=== PATIENT | female | born 1930 | race Caucasian/White ===

== ENCOUNTER 2018-03-02 13:24 | Outpatient (CLI) | payer MEDICARE, OTHER ==
--- NOTE | 2018-03-02 16:04 | RAD ---
THORACIC SPINE RADIOGRAPHS THREE VIEWS: Date: 03-02-18 Provided Clinical History: FINDINGS: There is left convexity scoliosis of the lower thoracic and upper lumbar spine. Sagittal thoracic ali gnment appears normal. Age indeterminate superior endplate compress deformity of T6. Vascular calcifi cation involves the aortic arch. Vascular stent material over the medial left upper quadrant. Cholecy stectomy clips overlie the right upper quadrant. IMPRESSION: 1. Age indeterminate superior endplate compression fracture of T6. 2. Thoracolumbar scoliosis as above. POS: [facility]
== END 2018-03-02 13:25 | disposition home or self-care (01) ==
LOC: TBSIIMAG 13:24
PROVIDERS: ATTEND Neurological Surgery
DX: M48.56XA Collapsed vertebra, not elsewhere classified, lumbar region, initial encounter for fracture (principal); M41.9 Scoliosis, unspecified
CPT/HCPCS: 72072

== ENCOUNTER 2018-04-21 09:41 | Outpatient (CLI) | payer MEDICARE, OTHER ==
--- NOTE | 2018-04-21 10:05 | RAD ---
THREE VIEWS THORACIC SPINE: Date: 04-21-18 History: Fracture of unspecific thoracic vertebral body. Patient having upper back pain. Comparison: 03-12-18 FINDINGS: There are compression fractures involving the T6 and T7 vertebral bodies with what appears to be at l east 50% loss of height anteriorly involving these vertebral bodies. The fracture of the T6 vertebral body was seen on the prior study. Fracture of the T7 vertebral body was not seen on the prior exam. There is left convex scoliosis of the thoracolumbar spine, also noted on the prior exam. Scattered os teophytes are seen within the thoracic spine. Vascular stent again overlies the left upper quadrant l ikely related to a renal artery stent. Surgical clips overlie the right upper quadrant. Vascular calc ifications are seen in the thoracic and abdominal aorta. IMPRESSION: 1. Stable compression fracture of the T6 vertebral body with interval development of a wedge shaped c ompression fracture of the T7 vertebral body. 2. Thoracolumbar scoliosis with degenerative changes scattered within the thoracic as well as visuali zed lumbar spine. POS: [facility]
== END 2018-04-21 09:42 | disposition home or self-care (01) ==
LOC: TBSIIMAG 09:41
PROVIDERS: ATTEND Neurological Surgery
DX: S22.008A Other fracture of unspecified thoracic vertebra, initial encounter for closed fracture (principal); S22.060A Wedge compression fracture of T7-T8 vertebra, initial encounter for closed fracture; S22.059A Unspecified fracture of T5-T6 vertebra, initial encounter for closed fracture
CPT/HCPCS: 72072

== ENCOUNTER 2018-05-24 11:16 | Outpatient (CLI) | payer MEDICARE, OTHER ==
--- NOTE | 2018-05-24 13:46 | RAD ---
THORACIC SPINE 3 VIEWS: Date: 05/24/18 HISTORY: 87-year-old female with history of unspecified thoracic vertebra. Patient was bending over and heard a pop> History of demineralization. COMPARISON: 04/21/18. FINDINGS: Again noted are compressive changes of what appear to be T6 and T7 vertebral bodies with little parsad e from the prior study. Bony demineralization. Generalized degenerative changes. There is noted to be some anterolisthesis of C3 on C4 and retrolisthesis of C4 on C5 partially visualized. IMPRESSION: Thoracic spondylosis. Vertebral body collapse involving what appear to be T6 and T7 vertebral bodies with little change from prior study. If the patient has significant acute symptoms, consider follow-u p MRI study. POS: [facility]
== END 2018-05-24 11:17 | disposition home or self-care (01) ==
LOC: TBSIIMAG 11:16
PROVIDERS: ATTEND Neurological Surgery
DX: S22.008A Other fracture of unspecified thoracic vertebra, initial encounter for closed fracture (principal); M47.894 Other spondylosis, thoracic region
CPT/HCPCS: 72072

== ENCOUNTER 2020-05-14 13:48 | Inpatient (IN) | payer MEDICARE, OTHER ==
[~2020-05-14 13:48] MED LIST: Iopamidol-370 76% 500 ML 1 ML ONE
[2020-05-14 15:05] LABS: #Lymphocytes 0.7 thou/uL (1.20-3.40); #Monocytes 0.3 thou/uL (0.11-0.59); #Neutrophils 9.4 thou/uL (1.40-6.50); %Eosinophils 0.4 % (0.0-10.0); %Lymphocytes 6.4 % (21.0-51.0); %Monocytes 3.2 % (0.0-10.0); Hemoglobin 15.1 g/dL (12.0-16.0); Mean Corpuscular HGB CONC 33.5 g/dL (32.0-36.0); Mean Corpuscular Hemoglobin 30.1 pg (27.0-31.0); Mean Corpuscular Volume 89.8 fL (78.0-98.0); Mean Platelet Volume 6.1 fL (7.4-10.4); Platelet Count 325 thou/uL (130-400); RBC Distribution Width 13.3 % (11.5-14.5); Red Blood Cell (RBC) Count 5.03 mill/uL (4.20-5.40); White Blood Cell (WBC) Count 10.4 thou/uL (4.8-10.8)
--- NOTE | 2020-05-14 15:05 | RAD ---
XR Chest 1 View Portable HISTORY: Chest pain COMPARISON: None FINDINGS: The heart size is borderline. The aorta is tortuous. The lungs are without focal areas of c onsolidation, pneumothorax or large pleural effusions. IMPRESSION: No radiographic evidence of acute cardiopulmonary process.
[2020-05-14 15:29] LABS: ALT (SGPT) 33 U/L (8-55); AST (SGOT) 16 U/L (5-34); Albumin 4.1 g/dL (3.4-4.8); Alkaline Phosphatase 57 U/L (40-110); Anion Gap 15 mmol/L (10-20); BUN (Urea Nitrogen) 29 mg/dL (9.8-20.1); Bilirubin, Total 0.2 mg/dL (0.2-1.2); CK (CPK) 17 U/L (29-168); Calc. Creatinine Clearance 0 mL/min (70-130); Calcium 9.4 mg/dL (7.8-10.44); Carbon Dioxide 23 mmol/L (23-31); Chloride 98 mmol/L (98-107); Estimated GFR-MDRD 44; Globulin 2.4 g/dL (2.4-3.5); Glucose 163 mg/dL (83-110); Lipase 54 U/L (8-78); Potassium 4.6 mmol/L (3.5-5.1); Protein, Total 6.5 g/dL (6.0-8.3); Sodium 131 mmol/L (136-145)
--- NOTE | 2020-05-14 16:01 | CT ---
CTA CHEST WITH CONTRAST: 05/14/20 Axial tomograms obtained following pulmonary angio protocol with multiplanar reconstruction and 3D po stprocessing. INDICATION: Shortness of breath. Assess for pulmonary embolus. FINDINGS: Pulmonary arteries are well opacified. No evidence of pulmonary embolus identified. The lung holder are well aerated. There is hazy atelectasis and infiltrate in the posterior right low er lobe. Streaky infiltrate cannot be excluded. Mild stranding in the left lung base. Lung holder otherwise appear clear. Mediastinum is otherwise unremarkable. Atherosclerotic changes are seen involving the thoracic aorta. No evidence of dissection or aneurysm. Images through upper abdomen unremarkable. Review of osseous structures shows wedge compression defor mities involving two mid thoracic vertebrae. These appear to represent T6 and T7 with prominent anter ior wedging of both these vertebra resulting in greater than 50% loss of anterior height. There is al so mild compression of the T12 vertebra. IMPRESSION: 1. No evidence of pulmonary embolus. 2. Hazy and streaky infiltrate and/or atelectasis in the right lung base. 3. Vertebral compression deformities as described. POS: [facility]
[2020-05-14] MEDS ORDERED: hydrALAZINE 20 MG/ML VIAL ONE (16:33)
[2020-05-14 17:04] LABS: Bacteria/HPF None Seen HPF (None Seen); Bilirubin Negative (Negative); Blood, Urine 1+ (Negative); Clarity Clear (Clear); Glucose, Urine (Dipstick) Normal (Negative); Leukocyte Negative Leu/uL (Negative); Nitrite Negative (Negative); Protein, Urine (Dipstick) Negative (Neg-Trace); Squamous Epithelial 0-3 HPF (0-3); Urobilinogen Normal mg/dL (Less than 2); WBC/HPF 0-3 HPF (0-3)
[2020-05-14 19:57] LABS: Lactic Acid 1.3 mmol/L (0.5-2.2)
[2020-05-14] MEDS ORDERED: Nitroglycerin 0.4 MG TAB (25 Tab Bottle) PO PRN (21:29)
[2020-05-14] MEDS ORDERED: Ondansetron ODT 4 MG TAB PO PRN (21:35)
[2020-05-14] MEDS ORDERED: Ondansetron PF 4 MG/2 ML Vial IVP PRN (21:35)
[2020-05-14] MEDS ORDERED: Senokot S 8.6-50 MG TAB PO PRN (21:35)
[2020-05-14] MEDS ORDERED: Carvedilol 6.25 MG TAB PO SCH (22:00)
[2020-05-14] MEDS ORDERED: Spironolactone 25 MG TAB PO SCH (22:00)
--- NOTE | 2020-05-14 22:07 | HP ---
PRIMARY CARE PHYSICIAN: Jorge Valencia MD. PRIMARY DB2 DBA: Sarita Underwood DO. CHIEF COMPLAINT: The patient was referred to the emergency room from Dr. Underwood' s office due to abnormal labs. HISTORY OF PRESENT ILLNESS: The patient is an 89-year-old female with giant cell arteritis with polymyalgia rheumatica on chronic steroids, presented to the emergency room with above complaints. Approximately 8 weeks ago, the patient was scratched by her dog on the left leg. She had approximately 2-inch long and 1-inch wide wound that has persistently remained open. She denies significant drainage. She had mild redness around the wound. Last week, she was started on Augmentin by Dr. Underwood. She was evaluated last week by Dr. Underwood and underwent a blood work including blood cultures. Over the last 3 days, the patient has not been feeling well. She feels generally weak and fatigued. She denies any fevers, chills, or sick contacts. No nausea, vomiting, night sweats, or GI symptoms reported. For this reason, she had a tele visit with Dr. Underwood. She was advised to come to the emergency room since her blood cultures were positive for Clostridium perfringens. Her blood cultures were drawn on May 07, 2020. Her WBC count on May 07, 2020 was 12.3 with 90.5% neutrophils. Her ESR at that time was 5 with a CRP of 1.6. No chest pain, shortness of breath, or palpitations reported. PAST MEDICAL HISTORY: 1. Chronic low back pain. 2. Giant cell arteritis with polymyalgia rheumatica, on prednisone 8 mg daily. 3. Coronary artery disease, status post stent placement, followed by Dr. Bethea. 4. Renal artery stenosis, status post stent placement. 5. Hypertension. 6. Gastroesophageal reflux disease. 7. Hyperlipidemia. 8. Hypothyroidism. 9. Osteoporosis. PAST SURGICAL HISTORY: 1. Cardiac stent placement. 2. Stent placement in the kidneys. 3. Biopsy for giant cell arteritis. 4. Colon resection ALLERGIES: THE PATIENT IS ALLERGIC TO SULFA. CURRENT HOME MEDICATIONS: The patient is able to name some of the medication that includes; 1. Spironolactone. 2. Prednisone 8 mg daily. 3. Carvedilol 25 mg b.i.d., which was recently increased by Dr. Bethea. She was on 12.5 mg b.i.d. 4. She is also on Augmentin. 5. Aspirin. 6. Zetia. Augmentin was started last week. SOCIAL HISTORY: The patient is retired, . Does not smoke. She makes her own decision with the help of her daughter. She is full code. FAMILY HISTORY: Positive for hypertension and heart disease. REVIEW OF SYSTEMS: All other review of systems were reviewed and were found negative. PHYSICAL EXAMINATION: VITAL SIGNS: Temperature 98.5 respirations of 20, pulse rate of 85 with a blood pressure of 161/77, and O2 saturation of 95% on room air. GENERAL: An 89-year-old female, in no apparent distress. HEENT: Head, atraumatic and normocephalic. Sclerae anicteric. Moist mucous membranes. No oral lesion. NECK: Supple. No JVD appreciated. No carotid bruit. LUNGS: Clear to auscultation bilaterally. There was scattered rhonchi at bases. No rales or wheezing. HEART: S1 and S2 present. A 3/6 systolic murmur over the mitral and aortic area. No heaves or pulsation. ABDOMEN: Soft. Bowel sounds present. No rebound or guarding. No costovertebral angle tenderness. EXTREMITIES: No edema or calf tenderness. There is a left leg wound approximately 2-inch long and 1-inch wide with granulation tissue. There was no drainage. There is mild erythema around the wound. Edges were clean. NEUROLOGIC: Grossly nonfocal. Moves all 4 extremities. Power was 5/5 in all extremities. PSYCHIATRY: Alert, awake and oriented x3. Normal affect. SKIN: Warm and dry. LYMPH NODES: No palpable lymph nodes in the neck. PERIPHERAL/VASCULAR: Radial pulses palpable bilaterally. MUSCULOSKELETAL: No joint swelling or tenderness. LABORATORY FINDINGS: CBC showed WBC 10.4 with hemoglobin 15.1, hematocrit 45.1, platelets of 325, neutrophils 90%. D-dimer was 1.68. Chemistry showed sodium 131, potassium 4.6, chloride 96, bicarb of 23, BUN 29, and creatinine 1.17. Lactic acid 2.2. CRP 0.9. Troponin was negative. BNP 52.6. Urinalysis was negative for WBC bacteria. Chest x-ray by my review was negative for infiltrate. CT angiogram of the chest by my review was negative for pulmonary embolism. EKG by my review showed sinus rhythm with left axis deviation and left ventricular hypertrophy with nonspecific ST-T wave changes. IMPRESSION: 1. Clostridium perfringens bacteremia. Please note, blood cultures were drawn one week ago. 2. Left leg cellulitis with wound infection. The initial scratch by the dog was approximately 5 to 6 week ago. Currently on Augmentin. 3. Chronic low back pain. 4. Giant cell arteritis with polymyalgia rheumatica, on chronic prednisone 8 mg daily. 5. Coronary artery disease, status post stent placement. 6. Chronic kidney disease, stage 3. 7. Sulfa allergy. 8. Hyponatremia. 9. Hypertension. 10. Hyperlipidemia. 11. Gastroesophageal reflux disease. 12. Hypothyroidism. 13. Osteoporosis. PLAN: The patient will be monitored on the telemetry unit. COVID-19 testing has been sent. We will start on clindamycin along with meropenem. Wound culture will be consulted. We will also consult Orthopedic for possible debridement. We will keep n.p.o. past midnight. The patient understands the above plan of care. The patient will require 2 to 3 days for stabilization. Job ID: [id number] [facility]ENTER[facility]
[2020-05-14] MEDS: Clindamycin/D5W 900 MG in Premix Bag 1 BAG IVPB SCH (22:18)
[2020-05-14] MEDS: MEROPENEM 1 GM/50 ML 1 GM in Premix Bag 1 BAG IVPB SCH (23:25)
[2020-05-15] MEDS: ALPRAZolam 0.25 MG TAB PO PRN ×2 (02:59→21:31)
[2020-05-15 04:36] LABS: #Basophils 0.1 thou/uL (0.0-0.2); #Eosinphils 0.1 thou/uL (0.0-0.7); #Lymphocytes 1.5 thou/uL (1.20-3.40); #Monocytes 0.8 thou/uL (0.11-0.59); #Neutrophils 7.4 thou/uL (1.40-6.50); %Basophils 0.6 % (0.0-1.0); %Eosinophils 1.2 % (0.0-10.0); %Lymphocytes 14.9 % (21.0-51.0); %Monocytes 8.3 % (0.0-10.0); %Neutrophils 74.9 % (42.0-75.0); Hemoglobin 13.1 g/dL (12.0-16.0); Mean Corpuscular HGB CONC 31.9 g/dL (32.0-36.0); Mean Corpuscular Volume 90.7 fL (78.0-98.0); Mean Platelet Volume 6.3 fL (7.4-10.4); Platelet Count 306 thou/uL (130-400); RBC Distribution Width 13.3 % (11.5-14.5); Red Blood Cell (RBC) Count 4.52 mill/uL (4.20-5.40); White Blood Cell (WBC) Count 9.8 thou/uL (4.8-10.8)
[2020-05-15 04:53] LABS: ALT (SGPT) 26 U/L (8-55); AST (SGOT) 16 U/L (5-34); Albumin 3.2 g/dL (3.4-4.8); Alkaline Phosphatase 48 U/L (40-110); Anion Gap 14 mmol/L (10-20); BUN (Urea Nitrogen) 20 mg/dL (9.8-20.1); Bilirubin, Total 0.3 mg/dL (0.2-1.2); Calc. Creatinine Clearance 36 mL/min (70-130); Calcium 8.7 mg/dL (7.8-10.44); Carbon Dioxide 20 mmol/L (23-31); Chloride 104 mmol/L (98-107); Estimated GFR-MDRD 65; Globulin 2.3 g/dL (2.4-3.5); Glucose 66 mg/dL (83-110); Potassium 3.7 mmol/L (3.5-5.1); Protein, Total 5.5 g/dL (6.0-8.3); Sodium 134 mmol/L (136-145)
[2020-05-15] MEDS: Clindamycin/D5W 900 MG in Premix Bag 1 BAG IVPB SCH ×3 (05:19→21:28)
[2020-05-15] MEDS: Ezetimibe 10 MG TAB PO SCH (08:46)
[2020-05-15] MEDS: predniSONE 1 MG TAB PO SCH (08:46)
[2020-05-15] MEDS: Aspirin 81 mg Enteric Coated Tablet PO SCH (08:46)
[2020-05-15] MEDS: Carvedilol 6.25 MG TAB PO SCH ×2 (08:47→17:25)
[2020-05-15] MEDS: Saccharomyces boulardii 250 MG CAP PO SCH (08:47)
[2020-05-15] MEDS: Spironolactone 25 MG TAB PO SCH ×2 (08:47→17:25)
[2020-05-15] MEDS: Famotidine 20 MG TAB PO SCH ×2 (08:48→20:28)
[2020-05-15] MEDS ORDERED: Dextrose 5 % And 0.9 % NaCl 1,000 ML IV SCH (09:45)
[2020-05-15] MEDS: MEROPENEM 1 GM/50 ML 1 GM in Premix Bag 1 BAG IVPB SCH ×2 (10:43→22:55)
[2020-05-15 11:09] VITALS: BMI 20.7
--- NOTE | 2020-05-15 12:35 | CON ---
DATE OF CONSULTATION: 05/15/2020 REQUESTING PHYSICIAN: Lalo Neves MD CONSULTING PHYSICIAN: Marek Carver MD REASON FOR CONSULTATION: Left leg skin wound with persistence and poor healing. BRIEF CLINICAL HISTORY: Iesha is an 89-year-old female, who was admitted from Dr. Underwood's office after she had a blood culture returned positive for Clostridium perfringens, which was drawn approximately a week ago. The patient has been feeling very well, but the blood culture was obtained because of a very slow healing wound on the left lateral leg, which was caused by a dog scratch about 6 weeks ago. She has been on Augmentin as an outpatient and she returned via telemedicine to Dr. Underwood and throughout the interview she noted she had been not feeling so well. Blood cultures were obtained, and apparently, Clostridium had grown out and she was advised to come to the emergency room as a direct admit and the Medicine Team admitted the patient and we have been consulted for evaluation of the wound. PAST MEDICAL HISTORY: Significant for chronic prednisone use due to a giant cell arteritis as well as polymyalgia rheumatica. She has been afebrile since admission and she has not run an elevated white count. She has not been labile. PHYSICAL EXAMINATION: VITAL SIGNS: Temperature 98.1, pulse 76; blood pressure was elevated at 185/87, but the patient claims no symptoms; respiratory rate 18 and unlabored, O2 saturation 96% on room air. GENERAL: She is alert and oriented to person, place, time, and situation, responsive and appropriate with examiner. She is an excellent historian and very pleasant to converse with. She is in no distress. EXTREMITIES: The visual inspection of the left leg demonstrates what appears to be an ovoid shaped ulcer on the left leg. There is a granulation at the depth. I see involution of the skin margins given the appearance of some chronicity consistent with the day of injury about 6 weeks. There is no active bleeding. There is no active purulence. There is not much erythema surrounding this. The skin is mobile. It is not swollen, it is nontender, and there is no purulence and this appears just to be an excavitated ulcer of about 2 mm in depth with a slow granulation appearance, but it does not appear grossly infected. I am sure it is colonized based on gross moist appearance and no scab formation. IMPRESSION AND PLAN: 1. Left leg persistent wound with poor skin healing, but does not appear grossly infected. I am sure it is colonized. 2. The patient had a positive blood culture for Clostridium perfringens. We will defer disposition and treatment plan to Dr. Watkins when he sees the patient. As far as from an Orthopedic standpoint, no surgical recommendations are made at this time. No reason to take her to surgery and debride this. Therefore, we will consult with Wound Care for topical treatments and continue to follow. This does not look clinically like a gangrenous problem and not requiring surgical debridement at this time. We will continue to follow the patient throughout her hospitalization. Job ID: [id number]
[2020-05-15 12:48] LABS: SARS-CoV-2 MS2 Positive; SARS-CoV-2 N Gene Negative; SARS-CoV-2 S Gene Negative; SARS-CoV-2 orf1ab Negative
[2020-05-15] MEDS ORDERED: Prevnar 13-Val Conj/PF 0.5 ML SYRINGE IM ONE (21:00)
[2020-05-15] MEDS: Enoxaparin Sodium 30 MG/0.3 ML SYRINGE SC SCH (21:29)
[2020-05-15] MEDS: Calcium Carbonate 500 MG ChewTAB PO PRN (21:31)
--- NOTE | 2020-05-15 23:39 | PDOC.HOSPP ---
- Subjective Encounter Date: 05/15/20 Encounter Time: 12:30 Subjective: Patient seen and examined for bacteremia. No fever/chills/nightsweats. No new complaints. No overnight events - Objective Vital Signs & Weight: Vital Signs (12 hours) Temp Pulse Resp BP BP Pulse Ox 05/15/20 22:54 68 126/60 05/15/20 20:27 97.6 F 66 16 166/77 H 97 05/15/20 16:15 97.5 F L 72 16 129/60 95 05/15/20 12:00 97.7 F 67 16 112/55 L 96 Weight Admit Weight 106 lb 11.2 oz Weight 106 lb 8 oz I&O: 05/14/20 05/15/20 05/16/20 06:59 06:59 06:59 Intake Total 286 1105 Balance 286 1105 Result Diagrams: 05/16/20 04:27 05/16/20 04:27 Additional Labs: Microbiology 05/14/20 19:29 Venous blood - Left Arm Blood Culture - Preliminary Gram Positive Ulises 05/14/20 15:12 Venous blood - Right Arm Blood Culture - Preliminary Specimen has been received and culture in progress. No Growth to date. 05/14/20 15:05 Venous blood - Right Arm Blood Culture - Preliminary Specimen has been received and culture in progress. No Growth to date. Radiology Reviewed by me: Yes (CXR - neg) EKG Reviewed by me: Yes (tele SR) Hospitalist ROS - Review of Systems Respiratory: denies: cough, dry, shortness of breath, hemoptysis, SOB with excertion, pleuritic pain, sputum, wheezing, other Cardiovascular: denies: chest pain, palpitations, orthopnea, paroxysmal noc. dyspnea, edema, light headedness, other Gastrointestinal: denies: nausea, vomiting, abdominal pain, diarrhea, constipation, melena, hematochezia, other - Medication Medications: Active Medications Generic Name Dose Route Start Last Admin Trade Name Freq PRN Reason Stop Dose Admin Alprazolam 0.25 mg 05/15/20 02:34 05/15/20 21:31 Xanax PO 0.25 mg BID PRN Administration Anxiety Aspirin 81 mg 05/15/20 09:00 05/15/20 08:46 Ecotrin PO 81 mg DAILY ZULMA Administration Calcium Carbonate 1,000 mg 05/14/20 21:35 05/15/20 21:31 Tums PO 1,000 mg Q4H PRN Administration Heartburn or Indigestion Carvedilol 12.5 mg 05/15/20 08:00 05/15/20 17:25 Coreg PO 12.5 mg BID-WM ZULMA Administration Ezetimibe 10 mg 05/15/20 09:00 05/15/20 08:46 Zetia PO 10 mg DAILY ZULMA Administration Enoxaparin Sodium 30 mg 05/15/20 21:00 05/15/20 21:29 Lovenox SC 30 mg 2100 ZULMA Administration Famotidine 20 mg 05/15/20 09:00 05/15/20 20:28 Pepcid PO Not Given BID ZULMA Clindamycin Phosphate/Dextrose 50 mls @ 100 mls/hr 05/14/20 22:00 05/15/20 21 :28 900 mg/ Device IVPB 50 mls Q8HR ZULMA Administration Meropenem 1 gm/ Device 50 mls @ 100 mls/hr 05/14/20 23:00 05/15/20 22:55 IVPB 50 mls 1100,2300 ZULMA Administration Prednisone 8 mg 05/15/20 09:00 05/15/20 08:46 Prednisone PO 8 mg DAILY ZULMA Administration Saccharomyces Boulardii 250 mg 05/15/20 09:00 05/15/20 08:47 Florastor PO 250 mg DAILY ZULMA Administration Spironolactone 25 mg 05/15/20 08:00 05/15/20 17:25 Aldactone PO 25 mg BID-WM ZULMA Administration - Exam General Appearance: NAD Heart: RRR, no gallops, no rubs, normal peripheral pulses Respiratory: no wheezes, no rales, no ronchi, normal chest expansion Gastrointestinal: soft, non-distended, normal bowel sounds, no guarding, no rigidity Extremities: no cyanosis, no clubbing, no edema Extremities - other findings: wound dressing+ Neurological: no new deficit Psychiatric: normal affect, A&O x 3 Hosp A/P - Plan DVT proph w/SCDs IMPRESSION: 1. Clostridium perfringens bacteremia. 2. Left leg cellulitis with wound infection. 3. Chronic low back pain. 4. Giant cell arteritis with polymyalgia rheumatica, on chronic prednisone 8 mg daily. 5. CAD s/p stent placement. 6. CKD 3. 7. Sulfa allergy. 8. Hyponatremia. 9. Hypertension. 10. Hyperlipidemia. 11. GERD. 12. Hypothyroidism. 13. Osteoporosis. PLAN: Cont Clindamycin Cont Meropenem COVID negative Cont wound care Echo negative Resume other home meds Await cultures
--- NOTE | 2020-05-16 01:11 | CON ---
DATE OF CONSULTATION: HISTORY OF PRESENT ILLNESS: Iesha Ruiz 89-year-old female, ambulates independently, lives with her daughter. She does not smoke or drink alcohol. She was scratched by a pet in left leg and developed some cellulitis. She is admitted this hospitalization yesterday by the Hospitalist Service because of positive blood cultures for clostridium perfringens. She had not been feeling well, but denied fever or chills. Blood culture drawn on May 07, 2020. On May 07, 2020, her white count was 12, ESR 5, and CRP 1.6. No other complaints. The patient was admitted and noted, where two small eschars, left leg. I was asked to see her regarding these, if this is the possible source of the problem. Evaluation of her left leg reveals that she has palpable pedal pulses. She has 2 small eschars left leg without cellulitis, without indication of infection, without purulence, and without fluctuance. These is no need for surgical intervention, regardless of blood culture results. PAST MEDICAL HISTORY: Followed by Dr. Devendra Bethea, for history of coronary stents and renal artery stents. She has recently evaluated by Dr. Devendra Bethea and told that her heart was stable. Giant-cell arteritis, polymyalgia rheumatica on prednisone daily, GERD, and hyperlipidemia. PAST SURGICAL HISTORY: Cardiac stent, renal artery stent, and biopsy. She had a colectomy in the past for colon bleeding. She has total abdominal hysterectomy and unilateral salpingo-oophorectomy. She has had a cholecystectomy. MEDICATIONS: At home; 1. Spironolactone. 2. Prednisone. 3. Diltiazem. 4. Zetia. 5. Levothyroxine. 6. Augmentin. 7. Carvedilol. 8. Xanax. PHYSICAL EXAMINATION: VITAL SIGNS: Height 5 feet, 106 pounds, and 20 BMI. 97.5, 72, and 129/60. LUNGS: Clear to auscultation. CARDIAC: Regular rate and rhythm without murmur or gallop. ABDOMEN: Soft and nontender. EXTREMITIES: Unremarkable. Eschar left leg noted. There is no cellulitis. No fluctuance. No redness. LABORATORY DATA: White count 9 and hemoglobin 13. Basic metabolic profile normal. ASSESSMENT AND PLAN: Left leg wounds are stable. There is no need for surgical debridement. She does not even need a bandage. I would wash this with soap and water daily. Follow up in my office p.r.n. if any problems. I will see her as needed. Job ID: [id number]
[2020-05-16] MEDS: Acetaminophen 325 MG TAB PO PRN ×2 (02:29→22:45)
[2020-05-16 04:44] LABS: #Basophils 0.1 thou/uL (0.0-0.2); #Eosinphils 0.1 thou/uL (0.0-0.7); #Lymphocytes 1.6 thou/uL (1.20-3.40); #Monocytes 0.7 thou/uL (0.11-0.59); %Basophils 0.9 % (0.0-1.0); %Eosinophils 1.3 % (0.0-10.0); %Lymphocytes 21.2 % (21.0-51.0); %Monocytes 9.4 % (0.0-10.0); %Neutrophils 67.2 % (42.0-75.0); Mean Corpuscular HGB CONC 32.7 g/dL (32.0-36.0); Mean Corpuscular Hemoglobin 30.1 pg (27.0-31.0); Mean Corpuscular Volume 92.1 fL (78.0-98.0); Mean Platelet Volume 6.1 fL (7.4-10.4); Platelet Count 274 thou/uL (130-400); RBC Distribution Width 13.4 % (11.5-14.5); Red Blood Cell (RBC) Count 4.34 mill/uL (4.20-5.40); White Blood Cell (WBC) Count 7.5 thou/uL (4.8-10.8)
[2020-05-16 05:05] LABS: ALT (SGPT) 19 U/L (8-55); AST (SGOT) 11 U/L (5-34); Alkaline Phosphatase 49 U/L (40-110); Anion Gap 10 mmol/L (10-20); BUN (Urea Nitrogen) 15 mg/dL (9.8-20.1); Bilirubin, Total 0.4 mg/dL (0.2-1.2); Calc. Creatinine Clearance 36 mL/min (70-130); Calcium 8.4 mg/dL (7.8-10.44); Carbon Dioxide 23 mmol/L (23-31); Chloride 106 mmol/L (98-107); Estimated GFR-MDRD 65; Globulin 2.1 g/dL (2.4-3.5); Glucose 88 mg/dL (83-110); Potassium 3.5 mmol/L (3.5-5.1); Protein, Total 5.1 g/dL (6.0-8.3); Sodium 135 mmol/L (136-145)
[2020-05-16] MEDS: Clindamycin/D5W 900 MG in Premix Bag 1 BAG IVPB SCH ×3 (06:04→21:29)
[2020-05-16] MEDS: Levothyroxine Sodium 50 MCG TAB PO SCH (06:05)
[2020-05-16] MEDS: Aspirin 81 mg Enteric Coated Tablet PO SCH (08:45)
[2020-05-16] MEDS: predniSONE 1 MG TAB PO SCH (08:45)
[2020-05-16] MEDS: Carvedilol 6.25 MG TAB PO SCH (08:46)
[2020-05-16] MEDS: Spironolactone 25 MG TAB PO SCH ×2 (08:46→18:10)
[2020-05-16] MEDS: Saccharomyces boulardii 250 MG CAP PO SCH (08:48)
[2020-05-16] MEDS: Ezetimibe 10 MG TAB PO SCH (08:48)
[2020-05-16] MEDS ORDERED: Labetalol HCl 100 MG/20 ML VIAL SLOW IVP PRN (09:05)
[2020-05-16] MEDS: Calcium Carbonate 500 MG ChewTAB PO PRN (10:04)
[2020-05-16] MEDS: MEROPENEM 1 GM/50 ML 1 GM in Premix Bag 1 BAG IVPB SCH ×2 (11:25→22:45)
[2020-05-16] MEDS ORDERED: Carvedilol 6.25 MG TAB PO SCH (12:00)
[2020-05-16] MEDS ORDERED: Iopamidol-370 76% 500 ML 1 ML ONE (13:00)
--- NOTE | 2020-05-16 14:53 | PDOC.HOSPP ---
- Subjective Encounter Date: 05/16/20 Encounter Time: 12:00 Subjective: Patient seen and examined for bacteremia. Feels gen weak. No new complaints. No overnight events - Objective Vital Signs & Weight: Vital Signs (12 hours) Temp Pulse Resp BP BP BP Pulse Ox 05/16/20 11:41 97.8 F 80 16 133/70 93 L 05/16/20 11:31 133/70 05/16/20 08:48 64 184/84 H 05/16/20 08:46 184/84 H 05/16/20 08:30 97 05/16/20 07:43 97.8 F 64 16 184/84 H 97 05/16/20 04:00 97.4 F L 76 16 149/67 H 96 Weight Admit Weight 106 lb 11.2 oz Weight 106 lb 4.8 oz I&O: 05/15/20 05/16/20 05/17/20 06:59 06:59 06:59 Intake Total 286 1105 Balance 286 1105 Result Diagrams: 05/16/20 04:27 05/16/20 04:27 Additional Labs: Microbiology 05/14/20 19:29 Venous blood - Left Arm Blood Culture - Preliminary Gram Positive Ulises 05/14/20 15:12 Venous blood - Right Arm Blood Culture - Preliminary NO GROWTH AT 48 HOURS 05/14/20 15:05 Venous blood - Right Arm Blood Culture - Preliminary NO GROWTH AT 48 HOURS EKG Reviewed by me: Yes (Tele SR) Hospitalist ROS - Review of Systems Respiratory: denies: cough, dry, shortness of breath, hemoptysis, SOB with excertion, pleuritic pain, sputum, wheezing, other Cardiovascular: denies: chest pain, palpitations, orthopnea, paroxysmal noc. dyspnea, edema, light headedness, other Gastrointestinal: denies: nausea, vomiting, abdominal pain, diarrhea, constipation, melena, hematochezia, other - Medication Medications: Active Medications Generic Name Dose Route Start Last Admin Trade Name Freq PRN Reason Stop Dose Admin Acetaminophen 650 mg 05/14/20 21:35 05/16/20 02:29 Tylenol PO 650 mg Q4H PRN Administration Headache/Fever/Mild Pain (1-3) Alprazolam 0.25 mg 05/15/20 02:34 05/15/20 21:31 Xanax PO 0.25 mg BID PRN Administration Anxiety Aspirin 81 mg 05/15/20 09:00 05/16/20 08:45 Ecotrin PO 81 mg DAILY ZULMA Administration Calcium Carbonate 1,000 mg 05/14/20 21:35 05/16/20 10:04 Tums PO 1,000 mg Q4H PRN Administration Heartburn or Indigestion Diltiazem HCl 120 mg 05/16/20 09:00 05/16/20 08:48 Cardizem Cd PO 120 mg DAILY ZULMA Administration Ezetimibe 10 mg 05/15/20 09:00 05/16/20 08:48 Zetia PO 10 mg DAILY ZULMA Administration Enoxaparin Sodium 30 mg 05/15/20 21:00 05/15/20 21:29 Lovenox SC 30 mg 2100 ZULMA Administration Clindamycin Phosphate/Dextrose 50 mls @ 100 mls/hr 05/14/20 22:00 05/16/20 13 :40 900 mg/ Device IVPB 50 mls Q8HR ZULMA Administration Meropenem 1 gm/ Device 50 mls @ 100 mls/hr 05/14/20 23:00 05/16/20 11:25 IVPB 50 mls 1100,2300 ZULMA Administration Levothyroxine Sodium 50 mcg 05/16/20 06:00 05/16/20 06:05 Synthroid PO 50 mcg 0600 ZULMA Administration Pantoprazole Sodium 40 mg 05/16/20 09:00 05/16/20 08:49 Protonix PO 40 mg DAILY ZULMA Administration Prednisone 8 mg 05/15/20 09:00 05/16/20 08:45 Prednisone PO 8 mg DAILY ZULMA Administration Saccharomyces Boulardii 250 mg 05/15/20 09:00 05/16/20 08:48 Florastor PO 250 mg DAILY ZULMA Administration Sodium Chloride 10 ml 05/14/20 21:29 05/16/20 13:42 Flush - Normal Saline IVF 10 ml PRN PRN Administration Saline Flush Spironolactone 25 mg 05/15/20 08:00 05/16/20 08:46 Aldactone PO 25 mg BID-WM ZULMA Administration - Exam General Appearance: NAD Heart: RRR, no gallops Respiratory: no wheezes, no rales Gastrointestinal: non-tender, non-distended, normal bowel sounds Extremities: no cyanosis, no clubbing, no edema Extremities - other findings: wound dressing + Neurological: no new deficit Psychiatric: normal affect, A&O x 3 Hosp A/P - Plan DVT proph w/lovenox, DVT proph w/SCDs 1. Clostridium perfringens bacteremia. 2. Left leg cellulitis. 3. Chronic low back pain. 4. Giant cell arteritis with polymyalgia rheumatica, on chronic prednisone 8 mg daily. 5. CAD s/p stent placement. 6. CKD 3. 7. Sulfa allergy. 8. Hyponatremia. 9. Hypertension. 10. Hyperlipidemia. 11. GERD. 12. Hypothyroidism. 13. Osteoporosis. 14. Anxiety. PLAN: Cont IV Clindamycin with Meropenem Await blood culture Cont wound care Echo reviewed Cont other home meds Await ID input
[2020-05-16] MEDS: Carvedilol 25 MG TAB PO SCH (18:10)
--- NOTE | 2020-05-16 19:00 | CT ---
CT ABDOMEN AND PELVIS WITH IV CONTRAST 05/16/2020 CLINICAL INFORMATION: Clostridium bacteremia of unknown source. COMPARISON: 12/03/2016 obtained because [facility] as well as study obtained from the [facility] on 07/05/2017 Technique: Multiple contiguous axial CT images are obtained through the abdomen and pelvis with IV contrast. Cor onal reformatted images are provided. FINDINGS: Lower Chest: Atelectasis versus scarring is present at each lung base. Coronary artery calcifications are seen. Vessels: Vascular calcifications are seen in the abdominal aorta and involving the iliac arteries. Abdomen: Portal vein:Patent Gallbladder: Surgically absent. Liver: within normal limits. Spleen: within normal limits. Pancreas: A 17 mm x 10 mm hypodense cystic lesion is seen in the body of the pancreas. This lesion wa s not seen on the study in 2017. Adrenals: within normal limits. Kidneys: An 11 mm exophytic hypodense lesion is seen the lateral aspect midportion left kidney which is slightly larger compared to prior study. A 1.6 cm hypodense cystic lesion inferior pole left kidney. The cystic lesions are likely related to renal cysts. Subcentimeter too small to characterize hypodense lesion is seen in the superior pole left kidney. Right kidney has a normal CT appearance. Left renal artery stent is again seen. Bowel: There is colonic diverticulosis. Again noted are suspected postsurgical changes related to aurelia r total colectomy.. Colonic diverticuli are seen. Peritoneum: No ascites or free air; no fluid collection. Mesentery and Retroperitoneum: No enlarged mesenteric or retroperitoneal lymph nodes. Abdominal Wall: within normal limits. Pelvis: Reproductive Organs: Evidence of hysterectomy. Pelvis within normal limits. Bladder: within normal limits. Bones: Compression fracture superior endplate L1 vertebral body. This is seen on radiographs on 2019. Trace anterolisthesis of L4 on L5 is again present. IMPRESSION: 1. Cystic pancreatic lesion was not seen on study in 2017. This cannot be further characterized on th is examination. MRI may be helpful for further evaluation. 2. Hypodense left renal cystic lesions likely related to renal cysts. Postoperative changes suspected of near-total colectomy with postsurgical changes related to cholecys tectomy and hysterectomy. 3. Stable height loss of a compression fracture L1 vertebral body. 4. No acute findings are seen in the abdomen or pelvis. No fluid collection is seen to suggest an abs cess.
[2020-05-16] MEDS: Enoxaparin Sodium 30 MG/0.3 ML SYRINGE SC SCH (21:29)
[2020-05-16] MEDS: ALPRAZolam 0.25 MG TAB PO PRN (21:40)
--- NOTE | 2020-05-16 21:53 | CON ---
DATE OF CONSULTATION: REASON FOR CONSULTATION: Clostridium bacteremia. HISTORY OF PRESENT ILLNESS: An 89-year-old patient of Dr. Sarita Underwood, who has polymyalgia rheumatica on low-dose steroids and had a scratch by one of her dogs and she has went to see Dr. Underwood and was given Augmentin. Blood cultures were taken and one set was positive for Clostridium perfringens reportedly. I do not have an actual copy of the result, so she called me and I said that she probably needs to be evaluated and she was admitted. On arrival; BP 160/77, temperature 98.5, and O2 saturation 95. The examination was fairly unremarkable. Other labs showed white cell count 10.4, hemoglobin 15, and platelets 325 with 90% neutrophils. D-dimer 1.68 and sodium 131, creatinine 1.17, and glucose 163. Urinalysis was fairly unremarkable. COVID was negative. Repeat blood culture 1 out of 3 sets with gram-positive arcenio yet to be identified and susceptibility tested. She had an echo, which had an EF 55 and somewhat thickened aortic valve. Other details were within normal limits. There was a chest CTA on admission, which showed some streaky infiltrates in right lung base and vertebral compression. Currently, Ms. Ruiz is in bed. She is very pleasant and she does not appear to be in distress. No headaches, visual symptoms, sore throat, odynophagia, or dysphagia. No cough, sputum production, or chest pain. No abdominal pain. No diarrhea. No genitourinary symptoms. No joint symptoms. PAST MEDICAL HISTORY: Includes giant-cell arteritis on low-dose prednisone, kidney stents, cardiac stent, and hypertension. She also had recurrent lower GI bleed, which eventually culminated in resection of almost the entire colon except for short-segment. ALLERGIES: SULFA DRUGS. SOCIAL H[place]ORY[place]oker. Lives with family members. CURRENT MEDICATIONS: 1. Xanax. 2. Ecotrin. 3. Tums. 4. Coreg. 5. Clindamycin. 6. Diltiazem. 7. Enoxaparin. 8. Zetia. 9. Synthroid. 10. Meropenem. PHYSICAL EXAMINATION: VITAL SIGNS: She has been afebrile during the hospital stay, BP 130/70, pulse 80, respirations 16, and O2 saturation 93 to 97. GENERAL: Appears in no distress. SKIN: Showed hyperpigmentation in the legs bilaterally and she has two lacerations, one from bumping against a hard object in the home and the other from the dog scratch in the medial aspect of the right leg. Both have kind of yellow tissue at the base intermixed with red tissue, not a lot of undermining. No lymphadenopathy. HEENT: Ocular movements conjugate. Oral cavity was not remarkable. NECK: Supple. LUNGS: Symmetric clear breath sounds. HEART: S1 and S2. Regular rate. No S3 or S4. ABDOMEN: Not distended and soft. EXTREMITIES: Pulses are 1+ in dorsalis pedis. She moves extremities equally. Cognitive function appears to be intact. LABORATORY DATA: Followup labs, white cell count 7.5 and hemoglobin 13. Albumin was 3.0. Liver profile normal. ASSESSMENT: Polymyalgia rheumatica and prior recurrent gastrointestinal bleed, which eventually led to resection of almost the entire colon except for short-segment and now fever and Clostridium species bacteremia associated with dog scratch. DISCUSSION: The Clostridium bacteremia could be originating from the dog scratch, although more likely is from an undisclosed area and potentially in the abdominal compartment. In elderly persons, clostridium bacteremia frequently manifests with a not very overt inflammatory syndrome and it may fool the physician into underestimating the severity of the illness. So, I am going to go ahead and evaluate her abdomen and pelvis with IV and oral contrast to make sure that is not the case here. If that is normal, then she can go home on oral Augmentin or just amoxicillin. Job ID: [id number] MTDD
[2020-05-17 04:38] LABS: #Basophils 0.1 thou/uL (0.0-0.2); #Eosinphils 0.1 thou/uL (0.0-0.7); #Monocytes 0.6 thou/uL (0.11-0.59); #Neutrophils 5.1 thou/uL (1.40-6.50); %Basophils 0.7 % (0.0-1.0); %Eosinophils 1.9 % (0.0-10.0); %Monocytes 7.2 % (0.0-10.0); %Neutrophils 65.3 % (42.0-75.0); Hemoglobin 12.7 g/dL (12.0-16.0); Mean Corpuscular HGB CONC 33.9 g/dL (32.0-36.0); Mean Corpuscular Hemoglobin 30.6 pg (27.0-31.0); Mean Corpuscular Volume 90.3 fL (78.0-98.0); Mean Platelet Volume 6.2 fL (7.4-10.4); Platelet Count 283 thou/uL (130-400); RBC Distribution Width 13.3 % (11.5-14.5); Red Blood Cell (RBC) Count 4.15 mill/uL (4.20-5.40); White Blood Cell (WBC) Count 7.9 thou/uL (4.8-10.8)
[2020-05-17 05:17] LABS: ALT (SGPT) 17 U/L (8-55); AST (SGOT) 11 U/L (5-34); Albumin 3.2 g/dL (3.4-4.8); Alkaline Phosphatase 53 U/L (40-110); Anion Gap 11 mmol/L (10-20); BUN (Urea Nitrogen) 15 mg/dL (9.8-20.1); Bilirubin, Total 0.3 mg/dL (0.2-1.2); Calc. Creatinine Clearance 31 mL/min (70-130); Calcium 8.9 mg/dL (7.8-10.44); Carbon Dioxide 24 mmol/L (23-31); Chloride 102 mmol/L (98-107); Estimated GFR-MDRD 54; Globulin 2.1 g/dL (2.4-3.5); Glucose 81 mg/dL (83-110); Protein, Total 5.3 g/dL (6.0-8.3); Sodium 133 mmol/L (136-145)
[2020-05-17] MEDS: Clindamycin/D5W 900 MG in Premix Bag 1 BAG IVPB SCH (05:44)
[2020-05-17] MEDS: Levothyroxine Sodium 50 MCG TAB PO SCH (05:44)
[2020-05-17] MEDS: Aspirin 81 mg Enteric Coated Tablet PO SCH (08:39)
[2020-05-17] MEDS: predniSONE 1 MG TAB PO SCH (08:39)
[2020-05-17] MEDS: Carvedilol 25 MG TAB PO SCH (08:40)
[2020-05-17] MEDS: Ezetimibe 10 MG TAB PO SCH (08:40)
[2020-05-17] MEDS: Spironolactone 25 MG TAB PO SCH (08:40)
[2020-05-17] MEDS: Saccharomyces boulardii 250 MG CAP PO SCH (08:40)
--- NOTE | 2020-05-17 10:31 | DIS ---
DATE OF ADMISSION: 05/14/2020 DATE OF DISCHARGE: 05/17/2020 PROFESSOR OF ANTHROPOLOGY: Dr. Underwood. DISCHARGE DISPOSITION: Home. FOLLOWUP: 1. Follow up with Dr. Valencia in 1 week. 2. Follow up with Infectious Disease, Dr. Watkins in 2 weeks. ALLERGIES: THE PATIENT IS ALLERGIC TO SULFA. DISCHARGE MEDICATIONS: The patient will continue Augmentin b.i.d. for [address] Watkins' recommendation. All other home medications were resumed. The patient was seen and examined on the day of discharge. Denies any new complaints. No chest pain, shortness of breath, fever, or chills reported. BRIEF HOSPITAL COURSE: The patient is an 89-year-old female with giant cell arteritis, on chronic steroids, presented to the hospital with Clostridium perfringens bacteremia. Please refer to the history and physical for further details. The patient was admitted to the hospital with the above diagnosis. She recently had a dog scratch as well. Repeat blood culture showed one of three Corynebacterium, which is probably a contaminant. She will continue Augmentin for another week. She was placed on IV antibiotics that has been discontinued. A CT scan of the abdomen and pelvis was negative for acute pathology. The patient has been cleared by Infectious Disease for discharge. FINAL DIAGNOSES: 1. Clostridium perfringens bacteremia probably secondary to dog scratch. 2. Left leg cellulitis, improving. 3. Chronic low back pain. 4. Giant cell arteritis with polymyalgia rheumatica, on chronic steroids. 5. Coronary artery disease, status post stent placement. 6. Chronic kidney disease, stage 3. 7. Hyponatremia. 8. Hypertension. 9. Sulfa allergy. 10. Hyperlipidemia. 11. Gastroesophageal reflux disease. 12. Hypothyroidism. 13. Osteoporosis. 14. Anxiety. The patient understands the above planof care. Job ID: [id number]
[2020-05-17 12:33] VITALS: BP 110/56; TEMP 97.3
[2020-05-17] MEDS: MEROPENEM 1 GM/50 ML 1 GM in Premix Bag 1 BAG IVPB SCH (12:34)
[2020-05-17] MEDS: Acetaminophen 325 MG TAB PO PRN (12:51)
[2020-05-17] MEDS ORDERED: Clindamycin 150 MG CAP PO SCH (14:00)
--- NOTE | 2020-05-18 14:52 | EKG ---
Test Reason : Blood Pressure : / mmHG Vent. Rate : 076 BPM Atrial Rate : 076 BPM P-R Int : 160 ms QRS Dur : 120 ms QT Int : 402 ms P-R-T Axes : -02 -42 011 degrees QTc Int : 452 ms Normal sinus rhythm Left axis deviation Left ventricular hypertrophy with QRS widening Nonspecific ST abnormality Abnormal ECG Confirmed by ABDULLAHI CAGE, LURDES ([id number]), gourmet coffee attendant EVA BOUDREAUX ([id number]) on 05/18/2020 2:52:18 PM Referred By: Confirmed By:LURDES FERNANDO MD
== END 2020-05-17 15:35 | disposition home health service (06) | DRG 603 ==
LOC: ERS 13:48 → ERHOLD 16:46 → 2NO 21:39
PROVIDERS: ADMIT Internal Medicine; ATTEND Internal Medicine
DX: L03.116 Cellulitis of left lower limb (principal); R78.81 Bacteremia; E87.1 Hypo-osmolality and hyponatremia; Z20.828 Contact with and (suspected) exposure to other viral communicable diseases; Z23 Encounter for immunization; I25.10 Atherosclerotic heart disease of native coronary artery without angina pectoris; I12.9 Hypertensive chronic kidney disease with stage 1 through stage 4 chronic kidney disease, or unspecified chronic kidney disease; E03.9 Hypothyroidism, unspecified; N18.3 Chronic kidney disease, stage 3 (moderate); M31.5 Giant cell arteritis with polymyalgia rheumatica; G89.29 Other chronic pain; K21.9 Gastro-esophageal reflux disease without esophagitis; E78.5 Hyperlipidemia, unspecified; M81.0 Age-related osteoporosis without current pathological fracture; F41.9 Anxiety disorder, unspecified; I16.0 Hypertensive urgency; Z90.49 Acquired absence of other specified parts of digestive tract; Z88.2 Allergy status to sulfonamides; Z79.82 Long term (current) use of aspirin; Z79.52 Long term (current) use of systemic steroids; Z79.899 Other long term (current) drug therapy; Z95.5 Presence of coronary angioplasty implant and graft; Z90.710 Acquired absence of both cervix and uterus
CPT/HCPCS: 36415; 71045; 71275; 74177; 80053; 81003; 81015; 82550; 83605; 83690; 83735; 83880; 84484; 85025; 85379; 85652; 86140; 87040; 87635; 93005; 93306; 94760; 96361; 96374; J0360; J1650; J2185; J3490; J7512; Q9967; U0003

== ENCOUNTER 2021-01-30 09:43 | Outpatient (CLI) | payer MEDICARE, OTHER | END 2021-01-30 09:44 | disposition home or self-care (01) | LOC: TBSIIMAG 09:43 | PROVIDERS: ATTEND Neurological Surgery | DX: S32.010D Wedge compression fracture of first lumbar vertebra, subsequent encounter for fracture with routine healing (principal); M54.5 Low back pain; S22.089D Unspecified fracture of T11-T12 vertebra, subsequent encounter for fracture with routine healing | CPT/HCPCS: 72072; 72100 ==

== ENCOUNTER 2021-03-11 14:48 | Outpatient (CLI) | payer MEDICARE, OTHER | END 2021-03-11 14:49 | disposition home or self-care (01) | LOC: TBSIIMAG 14:48 | PROVIDERS: ATTEND Neurological Surgery | DX: M48.56XA Collapsed vertebra, not elsewhere classified, lumbar region, initial encounter for fracture (principal) | CPT/HCPCS: 72100 ==

== ENCOUNTER 2021-10-30 13:16 | Inpatient (IN) | payer MEDICARE, OTHER ==
[2021-10-31] MEDS ORDERED: Acetaminophen 325 MG TAB PO PRN (01:12)
[2021-10-31 02:02] LABS: #Eosinphils 0.1 thou/uL (0.0-0.7); #Monocytes 0.8 thou/uL (0.11-0.59); #Neutrophils 7.4 thou/uL (1.40-6.50); %Basophils 0.1 % (0.0-1.0); %Monocytes 8.5 % (0.0-10.0); %Neutrophils 79.4 % (42.0-75.0); Hemoglobin 8.9 g/dL (12.0-16.0); Mean Corpuscular HGB CONC 33.6 g/dL (32.0-36.0); Mean Corpuscular Hemoglobin 29.6 pg (27.0-31.0); Mean Corpuscular Volume 88.1 fL (78.0-98.0); Mean Platelet Volume 7.2 fL (7.4-10.4); Platelet Count 259 thou/uL (130-400); RBC Distribution Width 14.7 % (11.5-14.5); White Blood Cell (WBC) Count 9.3 thou/uL (4.8-10.8)
[2021-10-31 02:22] LABS: Anion Gap 16 mmol/L (10-20); BUN (Urea Nitrogen) 60 mg/dL (9.8-20.1); Calc. Creatinine Clearance 9 mL/min (70-130); Calcium 8.2 mg/dL (7.8-10.44); Carbon Dioxide 14 mmol/L (23-31); Chloride 114 mmol/L (98-107); Glucose 69 mg/dL (83-110); Potassium 4.1 mmol/L (3.5-5.1); Sodium 140 mmol/L (136-145)
[2021-10-31 02:27] LABS: Troponin I 0.054 ng/mL (< 0.028)
[2021-10-31] MEDS ORDERED: TICAGRELOR 90 MG TABLET PO SCH (02:45)
[2021-10-31] MEDS: Sodium Bicarbonate 150 MEQ in Dextrose 5 % And 0.9 % NaCl 1,000 ML IV SCH ×2 (02:51→11:40)
[2021-10-31] MEDS ORDERED: Dextrose 5% in Water 1,000 ML IV PRN (05:13)
[2021-10-31] MEDS ORDERED: Dextrose 50% Abboject 50 ML SYRINGE SLOW IVP PRN (05:13)
[2021-10-31] MEDS: Carvedilol 6.25 MG TAB PO SCH ×2 (09:54→18:00)
[2021-10-31] MEDS: Aspirin 81 mg Enteric Coated Tablet PO SCH (09:55)
[2021-10-31 11:04] LABS: #Eosinphils 0.1 thou/uL (0.0-0.7); #Lymphocytes 0.7 thou/uL (1.20-3.40); #Monocytes 0.7 thou/uL (0.11-0.59); #Neutrophils 6.1 thou/uL (1.40-6.50); %Basophils 0.6 % (0.0-1.0); %Eosinophils 1.5 % (0.0-10.0); %Lymphocytes 9.5 % (21.0-51.0); %Monocytes 9.3 % (0.0-10.0); %Neutrophils 79.1 % (42.0-75.0); Hemoglobin 8.8 g/dL (12.0-16.0); Mean Corpuscular HGB CONC 31.8 g/dL (32.0-36.0); Mean Platelet Volume 7.6 fL (7.4-10.4); Platelet Count 276 thou/uL (130-400); RBC Distribution Width 14.8 % (11.5-14.5); Red Blood Cell (RBC) Count 3.12 mill/uL (4.20-5.40); White Blood Cell (WBC) Count 7.7 thou/uL (4.8-10.8)
[2021-10-31 11:23] LABS: Anion Gap 12 mmol/L (10-20); BUN (Urea Nitrogen) 53 mg/dL (9.8-20.1); Calc. Creatinine Clearance 11 mL/min (70-130); Calcium 8.2 mg/dL (7.8-10.44); Carbon Dioxide 21 mmol/L (23-31); Chloride 113 mmol/L (98-107); Glucose 114 mg/dL (83-110); Potassium 3.7 mmol/L (3.5-5.1); Sodium 142 mmol/L (136-145)
[2021-10-31 11:25] LABS: Troponin I 0.054 ng/mL (< 0.028)
[2021-10-31] MEDS ORDERED: Sodium Bicarbonate 150 MEQ in Dextrose 5 % And 0.9 % NaCl 1,000 ML IV SCH (11:37)
[2021-10-31] MEDS: Dextrose 5 %-0.45 % NaCl 1,000 ML IV SCH (13:15)
[2021-10-31 15:59] LABS: Iron 44 ug/dL (50-170); Iron Binding Capacity, Total 253 mcg/dL (265-497)
[2021-10-31 16:45] LABS: Ferritin 55.89 ng/mL (10-291)
[2021-10-31] MEDS: Mirtazapine 15 MG TAB PO SCH (20:58)
[2021-10-31] MEDS: Melatonin 3 MG TAB PO PRN (20:58)
[2021-10-31] MEDS: TICAGRELOR 90 MG TABLET PO SCH (20:58)
[2021-11-01] MEDS: Dextrose 5 %-0.45 % NaCl 1,000 ML IV SCH ×2 (00:18→14:37)
[2021-11-01 04:52] LABS: #Eosinphils 0.2 thou/uL (0.0-0.7); #Lymphocytes 1.2 thou/uL (1.20-3.40); #Monocytes 0.8 thou/uL (0.11-0.59); #Neutrophils 4.4 thou/uL (1.40-6.50); %Basophils 0.2 % (0.0-1.0); %Eosinophils 2.9 % (0.0-10.0); %Lymphocytes 18.1 % (21.0-51.0); %Monocytes 12.4 % (0.0-10.0); %Neutrophils 66.4 % (42.0-75.0); Hemoglobin 7.8 g/dL (12.0-16.0); Mean Corpuscular HGB CONC 33.1 g/dL (32.0-36.0); Mean Corpuscular Volume 87.7 fL (78.0-98.0); Mean Platelet Volume 7.5 fL (7.4-10.4); Platelet Count 220 thou/uL (130-400); RBC Distribution Width 14.9 % (11.5-14.5); Red Blood Cell (RBC) Count 2.68 mill/uL (4.20-5.40); White Blood Cell (WBC) Count 6.7 thou/uL (4.8-10.8)
[2021-11-01 05:08] LABS: Anion Gap 7 mmol/L (10-20); BUN (Urea Nitrogen) 37 mg/dL (9.8-20.1); Calc. Creatinine Clearance 19 mL/min (70-130); Calcium 7.8 mg/dL (7.8-10.44); Carbon Dioxide 21 mmol/L (23-31); Chloride 113 mmol/L (98-107); Glucose 104 mg/dL (83-110); Potassium 3.4 mmol/L (3.5-5.1); Sodium 138 mmol/L (136-145)
[2021-11-01] MEDS: Levothyroxine Sodium 50 MCG TAB PO SCH (05:30)
[2021-11-01] MEDS ORDERED: Cepastat Lozenges 1 LOZ PO PRN (07:13)
[2021-11-01] MEDS ORDERED: HYDROcodone/Acetaminophen 5/325 mg Tablet PO PRN (07:13)
[2021-11-01] MEDS ORDERED: hydrALAZINE 20 MG/ML VIAL SLOW IVP PRN (07:13)
[2021-11-01] MEDS ORDERED: Sodium Chloride 0.65% Nasal 44 ML BOT EA NARE PRN (07:13)
[2021-11-01] MEDS ORDERED: GUAIFENESIN SF SOLN 200 MG/10 ML UDCUP PO PRN (07:13)
[2021-11-01] MEDS: Carvedilol 6.25 MG TAB PO SCH ×2 (09:36→16:17)
[2021-11-01] MEDS: Multivitamin W/ Minerals 1 TAB PO SCH (09:37)
[2021-11-01] MEDS: Aspirin 81 mg Enteric Coated Tablet PO SCH (09:37)
[2021-11-01] MEDS: Folic Acid 1 MG TAB PO SCH (09:37)
[2021-11-01] MEDS: Cyanocobalamin (Vitamin B-12) 1,000 MCG TAB PO SCH (09:37)
[2021-11-01] MEDS: Potassium Chloride 20 MEQ TAB PO SCH ×2 (09:37→16:17)
[2021-11-01] MEDS: Sodium Bicarbonate Tab 325 MG TAB PO SCH ×3 (09:37→21:47)
[2021-11-01] MEDS: Ferrous Sulfate 325 MG TAB PO SCH (09:37)
[2021-11-01] MEDS: TICAGRELOR 90 MG TABLET PO SCH ×2 (09:38→21:47)
[2021-11-01] MEDS: Loperamide HCl 2 MG CAP PO PRN ×3 (18:02→21:47)
[2021-11-01] MEDS: Mirtazapine 15 MG TAB PO SCH (21:47)
[2021-11-01] MEDS ORDERED: ALPRAZolam 0.25 MG TAB PO SCH (22:00)
[2021-11-02] MEDS: Loperamide HCl 2 MG CAP PO PRN ×4 (00:08→16:07)
[2021-11-02] MEDS: Melatonin 3 MG TAB PO PRN (00:08)
[2021-11-02 04:48] LABS: #Basophils 0.1 thou/uL (0.0-0.2); #Eosinphils 0.2 thou/uL (0.0-0.7); #Lymphocytes 1.2 thou/uL (1.20-3.40); #Monocytes 0.7 thou/uL (0.11-0.59); #Neutrophils 3.2 thou/uL (1.40-6.50); %Basophils 1.1 % (0.0-1.0); %Eosinophils 3.2 % (0.0-10.0); %Lymphocytes 22.8 % (21.0-51.0); %Neutrophils 59.9 % (42.0-75.0); Hemoglobin 8.3 g/dL (12.0-16.0); Mean Corpuscular HGB CONC 34.2 g/dL (32.0-36.0); Mean Corpuscular Hemoglobin 30.1 pg (27.0-31.0); Mean Platelet Volume 7.6 fL (7.4-10.4); Platelet Count 221 thou/uL (130-400); RBC Distribution Width 14.8 % (11.5-14.5); Red Blood Cell (RBC) Count 2.77 mill/uL (4.20-5.40); White Blood Cell (WBC) Count 5.4 thou/uL (4.8-10.8)
[2021-11-02 05:09] LABS: Anion Gap 9 mmol/L (10-20); BUN (Urea Nitrogen) 21 mg/dL (9.8-20.1); Calc. Creatinine Clearance 27 mL/min (70-130); Carbon Dioxide 16 mmol/L (23-31); Chloride 116 mmol/L (98-107); Glucose 100 mg/dL (83-110); Magnesium 1.1 mg/dL (1.6-2.6); Potassium 4.4 mmol/L (3.5-5.1); Sodium 137 mmol/L (136-145)
[2021-11-02 05:29] LABS: Phosphorus 1.5 mg/dL (2.3-4.7)
[2021-11-02] MEDS ORDERED: Magnesium Sulfate 4 GM in Sodium Chloride 0.9% 250 ML 250 ML IVPB SCH (06:00)
[2021-11-02] MEDS ORDERED: Electrolyte Replacement Protocol 1 EACH FS PRN (06:00)
[2021-11-02] MEDS ORDERED: PHOS-NAK 1 PKT PACK PO SCH (06:00)
[2021-11-02] MEDS: Levothyroxine Sodium 50 MCG TAB PO SCH (06:51)
[2021-11-02] MEDS ORDERED: Electrolyte Replacement Protocol FS PRN (07:15)
[2021-11-02 07:31] LABS: Lactic Acid 0.8 mmol/L (0.5-2.2)
[2021-11-02] MEDS: Carvedilol 6.25 MG TAB PO SCH ×2 (09:04→17:08)
[2021-11-02] MEDS: Ferrous Sulfate 325 MG TAB PO SCH (09:05)
[2021-11-02] MEDS: TICAGRELOR 90 MG TABLET PO SCH ×2 (09:05→20:50)
[2021-11-02] MEDS: Folic Acid 1 MG TAB PO SCH (09:05)
[2021-11-02] MEDS: Sodium Bicarbonate Tab 325 MG TAB PO SCH ×3 (09:06→20:48)
[2021-11-02] MEDS: Cyanocobalamin (Vitamin B-12) 1,000 MCG TAB PO SCH (09:06)
[2021-11-02] MEDS: Multivitamin W/ Minerals 1 TAB PO SCH (09:06)
[2021-11-02] MEDS: Aspirin 81 mg Enteric Coated Tablet PO SCH (09:06)
[2021-11-02] MEDS ORDERED: Fluticasone Propionate Nasal Spray 16 gm Bottle NASAL SCH (13:15)
[2021-11-02] MEDS: Mirtazapine 15 MG TAB PO SCH ×2 (20:47→20:49)
[2021-11-03] MEDS: Melatonin 3 MG TAB PO PRN (00:29)
[2021-11-03] MEDS: Loperamide HCl 2 MG CAP PO PRN ×2 (04:45→20:25)
[2021-11-03] MEDS: Levothyroxine Sodium 50 MCG TAB PO SCH (05:35)
[2021-11-03 06:34] LABS: Anion Gap 10 mmol/L (10-20); BUN (Urea Nitrogen) 21 mg/dL (9.8-20.1); Calc. Creatinine Clearance 58 mL/min (70-130); Calcium 8.4 mg/dL (7.8-10.44); Carbon Dioxide 16 mmol/L (23-31); Chloride 114 mmol/L (98-107); Glucose 87 mg/dL (83-110); Potassium 4.7 mmol/L (3.5-5.1); Sodium 135 mmol/L (136-145)
[2021-11-03] MEDS ORDERED: PHOS-NAK 1 PKT PACK PO SCH (08:45)
[2021-11-03] MEDS: Aspirin 81 mg Enteric Coated Tablet PO SCH (08:54)
[2021-11-03] MEDS: Folic Acid 1 MG TAB PO SCH (08:55)
[2021-11-03] MEDS: Multivitamin W/ Minerals 1 TAB PO SCH (08:55)
[2021-11-03] MEDS: Ferrous Sulfate 325 MG TAB PO SCH (08:55)
[2021-11-03] MEDS: TICAGRELOR 90 MG TABLET PO SCH ×2 (08:55→20:30)
[2021-11-03] MEDS: Carvedilol 6.25 MG TAB PO SCH ×2 (08:55→16:33)
[2021-11-03] MEDS: Fluticasone Propionate Nasal Spray 16 gm Bottle NASAL SCH (09:00)
[2021-11-03] MEDS: Sodium Bicarbonate Tab 325 MG TAB PO SCH ×3 (09:00→20:25)
[2021-11-03] MEDS: Cyanocobalamin (Vitamin B-12) 1,000 MCG TAB PO SCH (09:06)
[2021-11-03] MEDS ORDERED: Magnesium 2 GM/50 ML 2 GM in Premix Bag 1 BAG IVPB SCH (10:00)
[2021-11-03] MEDS: Ondansetron PF 4 MG/2 ML Vial IVP PRN ×2 (12:13→20:25)
[2021-11-03] MEDS ORDERED: Mag-Al 1200 mg/1200 mg/30 ML UDCUP PO SCH (22:23)
[2021-11-03] MEDS ORDERED: Dextrose 50% Abboject 50 ML SYRINGE ONE (23:03)
[2021-11-03] MEDS ORDERED: Dextrose 5 %-0.45 % NaCl 1,000 ML IV SCH (23:30)
[2021-11-04] MEDS: Carvedilol 6.25 MG TAB PO SCH ×2 (06:12→16:56)
[2021-11-04] MEDS: Levothyroxine Sodium 50 MCG TAB PO SCH (06:13)
[2021-11-04] MEDS ORDERED: Fleet Enema 133 ML BOT FS SCH (08:15)
[2021-11-04] MEDS ORDERED: Phenylephrine 10 MG/ML VIAL ONE (10:39)
[2021-11-04] MEDS ORDERED: PROPOFOL 200 MG/20 ML VIAL ONE (10:39)
[2021-11-04] MEDS ORDERED: Lidocaine 1% PF 5 ML VIAL ONE (10:39)
[2021-11-04] MEDS ORDERED: Promethazine HCl 25 MG/ML VIAL IM PRN (11:11)
[2021-11-04] MEDS ORDERED: Promethazine HCl 25 MG/ML VIAL IVPB PRN (11:11)
[2021-11-04] MEDS ORDERED: Ondansetron HCl/PF 4 MG/2 ML Vial IVP PRN (11:11)
[2021-11-04] MEDS ORDERED: Ondansetron ORAL SOLN. 4 MG/5 ML UDCUP PO SCH (11:15)
[2021-11-04] MEDS: Multivitamin W/ Minerals 1 TAB PO SCH (11:32)
[2021-11-04] MEDS: Aspirin 81 mg Enteric Coated Tablet PO SCH (11:32)
[2021-11-04] MEDS: Sodium Bicarbonate Tab 325 MG TAB PO SCH ×3 (11:32→21:19)
[2021-11-04] MEDS: Folic Acid 1 MG TAB PO SCH (11:32)
[2021-11-04] MEDS: Cyanocobalamin (Vitamin B-12) 1,000 MCG TAB PO SCH (11:32)
[2021-11-04] MEDS: Fluticasone Propionate Nasal Spray 16 gm Bottle NASAL SCH (11:32)
[2021-11-04] MEDS: TICAGRELOR 90 MG TABLET PO SCH ×2 (11:33→21:20)
[2021-11-04] MEDS: Ferrous Sulfate 325 MG TAB PO SCH (11:36)
[2021-11-04] MEDS: Dextrose 5 %-0.45 % NaCl 1,000 ML IV SCH (11:37)
[2021-11-04] MEDS: Ondansetron ODT 4 MG TAB PO SCH ×2 (14:47→21:20)
[2021-11-04] MEDS: Mirtazapine 15 MG TAB PO SCH (21:19)
[2021-11-04] MEDS: Loperamide HCl 2 MG CAP PO SCH (21:19)
[2021-11-04] MEDS: Melatonin 3 MG TAB PO PRN (21:20)
[2021-11-05] MEDS: Ondansetron ODT 4 MG TAB PO SCH ×3 (05:39→21:43)
[2021-11-05] MEDS: Levothyroxine Sodium 50 MCG TAB PO SCH (05:39)
[2021-11-05 05:58] LABS: #Basophils 0.1 thou/uL (0.0-0.2); #Eosinphils 0.4 thou/uL (0.0-0.7); #Lymphocytes 1.4 thou/uL (1.20-3.40); #Monocytes 0.8 thou/uL (0.11-0.59); #Neutrophils 5.9 thou/uL (1.40-6.50); %Eosinophils 4.4 % (0.0-10.0); %Lymphocytes 16.2 % (21.0-51.0); %Monocytes 9.7 % (0.0-10.0); %Neutrophils 68.7 % (42.0-75.0); Hemoglobin 8.6 g/dL (12.0-16.0); Mean Corpuscular HGB CONC 31.1 g/dL (32.0-36.0); Mean Corpuscular Hemoglobin 28.6 pg (27.0-31.0); Mean Platelet Volume 7.6 fL (7.4-10.4); Platelet Count 228 thou/uL (130-400); RBC Distribution Width 15.2 % (11.5-14.5); Red Blood Cell (RBC) Count 3.02 mill/uL (4.20-5.40); White Blood Cell (WBC) Count 8.5 thou/uL (4.8-10.8)
[2021-11-05 06:17] LABS: Anion Gap 10 mmol/L (10-20); BUN (Urea Nitrogen) 29 mg/dL (9.8-20.1); Calc. Creatinine Clearance 18 mL/min (70-130); Calcium 8.9 mg/dL (7.8-10.44); Carbon Dioxide 19 mmol/L (23-31); Chloride 110 mmol/L (98-107); Glucose 131 mg/dL (83-110); Magnesium 1.6 mg/dL (1.6-2.6); Phosphorus 2.4 mg/dL (2.3-4.7); Potassium 4.3 mmol/L (3.5-5.1); Sodium 135 mmol/L (136-145)
[2021-11-05] MEDS ORDERED: Magnesium 2 GM/50 ML 2 GM in Premix Bag 1 BAG IVPB SCH (07:00)
[2021-11-05] MEDS: Loperamide HCl 2 MG CAP PO SCH ×2 (08:20→21:43)
[2021-11-05] MEDS: Carvedilol 6.25 MG TAB PO SCH ×2 (08:20→17:19)
[2021-11-05] MEDS: Folic Acid 1 MG TAB PO SCH (08:21)
[2021-11-05] MEDS: Aspirin 81 mg Enteric Coated Tablet PO SCH (08:22)
[2021-11-05] MEDS: Multivitamin W/ Minerals 1 TAB PO SCH (08:22)
[2021-11-05] MEDS: Cyanocobalamin (Vitamin B-12) 1,000 MCG TAB PO SCH (08:22)
[2021-11-05] MEDS: Sodium Bicarbonate Tab 325 MG TAB PO SCH ×3 (08:22→21:42)
[2021-11-05] MEDS: TICAGRELOR 90 MG TABLET PO SCH ×2 (08:22→21:43)
[2021-11-05] MEDS: Fluticasone Propionate Nasal Spray 16 gm Bottle NASAL SCH (08:22)
[2021-11-05] MEDS: Mirtazapine 15 MG TAB PO SCH (21:42)
[2021-11-06] MEDS: Ondansetron ODT 4 MG TAB PO SCH ×3 (06:24→20:44)
[2021-11-06] MEDS: Levothyroxine Sodium 50 MCG TAB PO SCH (06:24)
[2021-11-06 08:42] LABS: #Basophils 0.1 thou/uL (0.0-0.2); #Eosinphils 0.5 thou/uL (0.0-0.7); #Lymphocytes 1.1 thou/uL (1.20-3.40); #Monocytes 0.9 thou/uL (0.11-0.59); #Neutrophils 4.8 thou/uL (1.40-6.50); %Basophils 1.2 % (0.0-1.0); %Lymphocytes 14.8 % (21.0-51.0); %Monocytes 12.5 % (0.0-10.0); %Neutrophils 64.5 % (42.0-75.0); Hemoglobin 8.7 g/dL (12.0-16.0); Mean Corpuscular HGB CONC 30.3 g/dL (32.0-36.0); Mean Corpuscular Hemoglobin 27.7 pg (27.0-31.0); Mean Corpuscular Volume 91.4 fL (78.0-98.0); Mean Platelet Volume 7.4 fL (7.4-10.4); Platelet Count 226 thou/uL (130-400); RBC Distribution Width 15.1 % (11.5-14.5); Red Blood Cell (RBC) Count 3.15 mill/uL (4.20-5.40); White Blood Cell (WBC) Count 7.4 thou/uL (4.8-10.8)
[2021-11-06] MEDS: Cyanocobalamin (Vitamin B-12) 1,000 MCG TAB PO SCH (08:46)
[2021-11-06] MEDS: Carvedilol 6.25 MG TAB PO SCH ×2 (08:46→17:52)
[2021-11-06] MEDS: Fluticasone Propionate Nasal Spray 16 gm Bottle NASAL SCH (08:46)
[2021-11-06] MEDS: Aspirin 81 mg Enteric Coated Tablet PO SCH (08:46)
[2021-11-06] MEDS: Multivitamin W/ Minerals 1 TAB PO SCH (08:46)
[2021-11-06] MEDS: Sodium Bicarbonate Tab 325 MG TAB PO SCH ×3 (08:46→20:44)
[2021-11-06] MEDS: TICAGRELOR 90 MG TABLET PO SCH ×2 (08:46→20:44)
[2021-11-06] MEDS: Loperamide HCl 2 MG CAP PO SCH ×2 (08:46→20:44)
[2021-11-06] MEDS: Folic Acid 1 MG TAB PO SCH (08:46)
[2021-11-06 08:52] LABS: Anion Gap 12 mmol/L (10-20); BUN (Urea Nitrogen) 30 mg/dL (9.8-20.1); Calc. Creatinine Clearance 43 mL/min (70-130); Calcium 8.7 mg/dL (7.8-10.44); Carbon Dioxide 17 mmol/L (23-31); Chloride 112 mmol/L (98-107); Glucose 85 mg/dL (83-110); Potassium 4.2 mmol/L (3.5-5.1); Sodium 137 mmol/L (136-145)
[2021-11-06] MEDS: Mirtazapine 15 MG TAB PO SCH (20:44)
[2021-11-07 04:53] VITALS: BMI 17.7
[2021-11-07] MEDS: Ondansetron ODT 4 MG TAB PO SCH (06:37)
[2021-11-07] MEDS: Levothyroxine Sodium 50 MCG TAB PO SCH (06:37)
[2021-11-07] MEDS: Cyanocobalamin (Vitamin B-12) 1,000 MCG TAB PO SCH (10:00)
[2021-11-07] MEDS: Multivitamin W/ Minerals 1 TAB PO SCH (10:00)
[2021-11-07] MEDS: Carvedilol 6.25 MG TAB PO SCH (10:00)
[2021-11-07] MEDS: Loperamide HCl 2 MG CAP PO SCH (10:00)
[2021-11-07] MEDS: Aspirin 81 mg Enteric Coated Tablet PO SCH (10:00)
[2021-11-07] MEDS: Folic Acid 1 MG TAB PO SCH (10:00)
[2021-11-07] MEDS: Sodium Bicarbonate Tab 325 MG TAB PO SCH (10:00)
[2021-11-07] MEDS: TICAGRELOR 90 MG TABLET PO SCH (10:02)
[2021-11-07] MEDS: Fluticasone Propionate Nasal Spray 16 gm Bottle NASAL SCH (10:03)
[2021-11-07 13:53] VITALS: BP 157/75; TEMP 97.6
== END 2021-11-07 14:12 | disposition home health service (06) | DRG 683 ==
LOC: 2NO 13:16 → T4-B 11-03 10:55
PROVIDERS: ADMIT Internal Medicine; ATTEND Internal Medicine
PROC: 0DB68ZX Excision of Stomach, Via Natural or Artificial Opening Endoscopic, Diagnostic (ICD-10-PCS; principal; 2021-11-04)
PROC: 0DBP8ZX Excision of Rectum, Via Natural or Artificial Opening Endoscopic, Diagnostic (ICD-10-PCS; 2021-11-04)
PROC: 0DBB8ZX Excision of Ileum, Via Natural or Artificial Opening Endoscopic, Diagnostic (ICD-10-PCS; 2021-11-04)
PROC: 0DBE8ZX Excision of Large Intestine, Via Natural or Artificial Opening Endoscopic, Diagnostic (ICD-10-PCS; 2021-11-04)
DX: N17.9 Acute kidney failure, unspecified (principal); E87.2 Acidosis; E44.0 Moderate protein-calorie malnutrition; Z68.1 Body mass index [BMI] 19.9 or less, adult; K62.5 Hemorrhage of anus and rectum; Z20.822 Contact with and (suspected) exposure to COVID-19; I25.10 Atherosclerotic heart disease of native coronary artery without angina pectoris; E78.5 Hyperlipidemia, unspecified; R77.8 Other specified abnormalities of plasma proteins; E03.9 Hypothyroidism, unspecified; N18.30 Chronic kidney disease, stage 3 unspecified; D52.0 Dietary folate deficiency anemia; K52.9 Noninfective gastroenteritis and colitis, unspecified; K25.9 Gastric ulcer, unspecified as acute or chronic, without hemorrhage or perforation; I12.9 Hypertensive chronic kidney disease with stage 1 through stage 4 chronic kidney disease, or unspecified chronic kidney disease; E86.0 Dehydration; Z88.2 Allergy status to sulfonamides; Z79.82 Long term (current) use of aspirin; Z79.899 Other long term (current) drug therapy; Z95.5 Presence of coronary angioplasty implant and graft; I25.2 Old myocardial infarction; Z90.89 Acquired absence of other organs; Z90.49 Acquired absence of other specified parts of digestive tract; Z98.890 Other specified postprocedural states
CPT/HCPCS: 36415; 36416; 80048; 82274; 82607; 82728; 82746; 83540; 83550; 83605; 83735; 84100; 84484; 85025; 87045; 87046; 87324; 87328; 87329; 87427; 87449; 88305; 88313; 88342; J2370; J2405; J2704; J3475; J7042; J7050; Q0162